=== PATIENT | female | born 1990 | race American Indian/Alaskan Native ===

== ENCOUNTER 2017-01-25 10:50 | Emergency (ER) | payer OTHER ==
[2017-01-25 11:05] VITALS: BP 112/73
[2017-01-25] MEDS ORDERED: MOTRIN PO ONE (13:11)
--- NOTE | 2017-01-25 14:33 | Emergency Department Report ---
- General Chief complaint: Skin/Abscess/Foreign Body Stated complaint: KNOTS UNDER BREAST/CHEST AREA Time Seen by Provider: 01/25/17 12:49 Source: patient Mode of arrival: Ambulatory Limitations: No Limitations - Related Data Home Medications Medication Instructions Recorded Confirmed Last Taken No Known Home Medications [No 06/18/16 06/18/16 Unknown Reported Home Medications] Allergies Allergy/AdvReac Type Severity Reaction Status Date / Time No Known Allergies Allergy Unverified 06/18/16 09:15 Abscess Boil HPI - HPI Chief Complaint: Skin/Abscess/Foreign Body Stated Complaint: KNOTS UNDER BREAST/CHEST AREA Time Seen by Provider: 01/25/17 12:49 Home Medications: Home Medications Medication Instructions Recorded Confirmed Last Taken No Known Home Medications [No 06/18/16 06/18/16 Unknown Reported Home Medications] Allergies/Adverse Reactions: Allergies Allergy/AdvReac Type Severity Reaction Status Date / Time No Known Allergies Allergy Unverified 06/18/16 09:15 ED Review of Systems ROS: Stated complaint: KNOTS UNDER BREAST/CHEST AREA Other details as noted in HPI ED Past Medical Hx - Past Medical History Previous Medical History?: No - Surgical History Past Surgical History?: No - Social History Smoking Status: Current Every Day Smoker Substance Use Type: Alcohol, Marijuana - Medications Home Medications: Home Medications Medication Instructions Recorded Confirmed Last Taken Type No Known Home Medications [No 06/18/16 06/18/16 Unknown History Reported Home Medications] ED Physical Exam - General Limitations: No Limitations ED Course Vital Signs 01/25/17 11:01 Temperature 98.4 F Pulse Rate 89 Respiratory 16 Rate Blood Pressure 112/73 O2 Sat by Pulse 98 Oximetry Critical care attestation.: If time is entered above; I have spent that time in minutes in the direct care of this critically ill patient, excluding procedure time. ED Disposition Condition: Stable Referrals: PRIMARY CARE, [Primary Care Provider] - 3-5 Days
--- NOTE | 2017-01-25 14:49 | Emergency Department Report ---
Entered by LUCI BURGESS, acting as scribe for ALEXANDER STANFORD PA. - General Chief complaint: Skin/Abscess/Foreign Body Stated complaint: KNOTS UNDER BREAST/CHEST AREA Time Seen by Provider: 01/25/17 12:49 Source: patient Mode of arrival: Ambulatory Limitations: No Limitations - History of Present Illness Initial comments: 26 year old female with no significant PMHx presents to the ED c/o lumps on left breast that began 6 months ago. Patient states the lumps constantly change in size. Associated symptoms include pain around the lumps, which she describes as pressure in quality, intermittent chest pain, and, discoloration on mid- chest that began 2 days ago. Rates pain a 9/10 in severity. Denies nausea, vomiting, fever, chills, numbness, and tingling. Use tobacco products. LMP 01/25. NKDA. HERNÁNDEZ complaint: discoloration (dark discoloration on upper mid-chest), other ( breast mass on left breast) Onset/Timin -: month(s) Tetanus Up to Date: unsure Location: chest (left breast) Severity: moderate Severity scale (0 -10): 9 Quality: other (pressure) Consistency: constant Improves with: none Worsens with: none Context: none Associated symptoms: denies other symptoms Treatments Prior to Arrival: none - Related Data Previous Rx's Medication Instructions Recorded Last Taken Type Cephalexin [Keflex] 500 mg PO Q12HR #14 cap 01/25/17 Unknown Rx Ibuprofen [Motrin] 600 mg PO Q8H PRN #30 tablet 01/25/17 Unknown Rx Sulfamethoxazole/Trimethoprim 1 each PO BID #14 tablet 01/25/17 Unknown Rx [Bactrim DS TAB] Allergies Allergy/AdvReac Type Severity Reaction Status Date / Time No Known Allergies Allergy Unverified 06/18/16 09:15 Abscess Boil HPI - HPI Chief Complaint: Skin/Abscess/Foreign Body Stated Complaint: KNOTS UNDER BREAST/CHEST AREA Time Seen by Provider: 01/25/17 12:49 Duration: >1 Week (6 months) Location: Chest (left breast) Severity: Moderate History: Yes Pain (left breast around mass), No Fever, No Purulent Drainage, No Numbness, No Foreign Body, No Previous History, No Insect Bite Home Medications: Previous Rx's Medication Instructions Recorded Last Taken Type Cephalexin [Keflex] 500 mg PO Q12HR #14 cap 01/25/17 Unknown Rx Ibuprofen [Motrin] 600 mg PO Q8H PRN #30 tablet 01/25/17 Unknown Rx Sulfamethoxazole/Trimethoprim 1 each PO BID #14 tablet 01/25/17 Unknown Rx [Bactrim DS TAB] Allergies/Adverse Reactions: Allergies Allergy/AdvReac Type Severity Reaction Status Date / Time No Known Allergies Allergy Unverified 06/18/16 09:15 ED Review of Systems Comment: All other systems reviewed and negative Constitutional: denies: chills, fever, other (tingling and discharge from breast mass) Cardiovascular: chest pain (intermittent) Gastrointestinal: denies: nausea, vomiting Skin: change in color (dark discoloration to mid-chest), other (breast mass on left breast) ED Past Medical Hx - Past Medical History Previous Medical History?: No - Surgical History Past Surgical History?: No - Social History Smoking Status: Current Every Day Smoker Substance Use Type: Alcohol, Marijuana - Medications Home Medications: Home Medications Medication Instructions Recorded Confirmed Last Taken Type Cephalexin [Keflex] 500 mg PO Q12HR #14 cap 01/25/17 Unknown Rx Ibuprofen [Motrin] 600 mg PO Q8H PRN #30 tablet 01/25/17 Unknown Rx Sulfamethoxazole/Trimethoprim 1 each PO BID #14 tablet 01/25/17 Unknown Rx [Bactrim DS TAB] ED Physical Exam - General Limitations: No Limitations General appearance: alert, in no apparent distress - Head Head exam: Present: atraumatic, normocephalic - Eye Eye exam: Present: normal appearance, EOMI Pupils: Present: normal accommodation - ENT ENT exam: Present: normal exam, mucous membranes moist - Neck Neck exam: Present: normal inspection, full ROM. Absent: tenderness, lymphadenopathy - Respiratory Respiratory exam: Present: normal lung sounds bilaterally, chest wall tenderness (mild discomfort left breast in her quadrant at 8 o'clock position small 1-2 cm mass slightly firm but mobile no masses and axilla or in tail of breast no significant external skin changes ). Absent: respiratory distress - Cardiovascular Cardiovascular Exam: Present: regular rate, normal rhythm - GI/Abdominal GI/Abdominal exam: Present: soft. Absent: distended - Extremities Exam Extremities exam: Present: normal inspection, full ROM - Back Exam Back exam: Present: normal inspection, full ROM - Neurological Exam Neurological exam: Present: alert, oriented X3 - Psychiatric Psychiatric exam: Present: normal affect, normal mood - Skin Skin exam: Present: warm, dry, intact. Absent: rash - Other Other exam information: Chest: no axillary lymphadenopathy. Present: a well-circumcised round stiff lesion in lower inner quadrant 3 at approximately 8 o'clock in location. ED Course Vital Signs 01/25/17 11:01 Temperature 98.4 F Pulse Rate 89 Respiratory 16 Rate Blood Pressure 112/73 O2 Sat by Pulse 98 Oximetry ED Medical Decision Making - Medical Decision Making A/P: Possible cystic breast mass versus small abscess 1-breast ultrasound done but as per radiology service will not be read for several hours I will call patient back with the result and refer her to outpatient surgery/breast clinic/CRITICAL CARE PHYSICIAN. She states she has been experiencing this intermittently for 6 months so it is more likely to be a cystic mass 2-we'll cover empirically for small abscess with Bactrim, Motrin when necessary 3-advised patient to return to the ED if she experiences worsening pain or any skin changes on breast or any significant erythema ED Disposition Clinical Impression: Breast cyst Qualifiers: Laterality: left Qualified Code(s): N60.02 - Solitary cyst of left breast Disposition: DISCHARGED TO HOME OR SELFCARE Is pt being admited?: No Does the pt Need Aspirin: No Condition: Stable Instructions: Breast Self-exam (ED), Breast Mass (ED) Prescriptions: Cephalexin [Keflex] 500 mg PO Q12HR #14 cap Ibuprofen [Motrin] 600 mg PO Q8H PRN #30 tablet PRN Reason: Pain Sulfamethoxazole/Trimethoprim [Bactrim DS TAB] 1 each PO BID #14 tablet Referrals: NYLA MARIE MD [Staff Physician] - 3-5 Days MELISSA LINARES MD [Staff Physician] - 3-5 Days Time of Disposition: 14:41 This documentation as recorded by the JENIFER toledo JASMINE,accurately reflects the service I personally performed and the decisions made by ,ALEXANDER STANFORD PA.
--- NOTE | 2017-01-25 17:15 | Ultrasound Report ---
FINAL REPORT EXAM: US BREAST LT LIMITED HISTORY: left breast mass/abscess TECHNIQUE: Limited ultrasound of the left breast using grayscale and color flow imaging PRIORS: None FINDINGS: Examination over the palpable area of clinical concern was performed in the medial left breast 8:00 position, 8 cm from the nipple. In this location, there is a 2.2 x 0.6 x 2.8 cm complex cystic collection with internal debris. This is located in the subcutaneous tissues and has no internal blood flow identified. It is located 2 mm deep to the skin. Findings are nonspecific and can be consistent with seroma, hematoma, or abscess. IMPRESSION: Complex cystic fluid collection in the subcutaneous tissues at the 8 o'clock position, 8 cm from the nipple corresponding to the palpable area of concern. Ultrasound findings are nonspecific but can be consistent with abscess as clinically suspected.
== END 2017-01-25 15:02 | disposition home or self-care (01) ==
LOC: ED 10:50
DX: N60.02 Solitary cyst of left breast (principal); F17.200 Nicotine dependence, unspecified, uncomplicated; F12.90 Cannabis use, unspecified, uncomplicated

== ENCOUNTER 2017-04-05 01:15 | Emergency (ER) | payer SELFPAY ==
[2017-04-05 01:40] VITALS: BP 113/86
== END 2017-04-05 05:30 | disposition left against medical advice (07) ==
LOC: ED 01:15
DX: K08.89 Other specified disorders of teeth and supporting structures (principal); Z53.21 Procedure and treatment not carried out due to patient leaving prior to being seen by health care provider

== ENCOUNTER 2020-08-31 17:06 | Emergency (ER) | payer BC ==
[2020-08-31 17:28] VITALS: BP 119/86
--- NOTE | 2020-08-31 20:08 | Cat Scan Report ---
NONENHANCED CT SCAN OF THE HEAD: INDICATION / CLINICAL INFORMATION: 30 years Female; headache, dizziness after head injury. TECHNIQUE: Routine CT head without contrast. All CT scans at this location are performed using CT dos e reduction for ALARA by means of automated exposure control. COMPARISON: None. FINDINGS: BRAIN / INTRACRANIAL CONTENTS: No intracranial sequela from the trauma; no scalp swelling; no fluid l evel in the visualized portions of the paranasal sinuses. No acute hemorrhage, mass effect, midline shift, hydrocephalus, or acute, large territorial infarct. No chronic infarct or focal atrophy. Normal brain volume and ventricular/sulcal size for age. No sign ificant white matter abnormality. CRANIOCERVICAL JUNCTION: Mild tonsillar ectopia ORBITS: No significant abnormality of visualized orbits. SINUSES / MASTOIDS: No significant abnormality of the visualized paranasal sinuses or mastoid air kinza ls. ADDITIONAL FINDINGS: None. IMPRESSION: No acute focal parenchymal lesion in the brain Signer Name: Naif Montelongo MD Signed: 08/31/2020 8:04 PM Workstation Name: [id number]
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
[2020-08-31 20:51] LABS: Basophils # (Auto) 0.1 K/mm3 (0.0-0.1); Eosinophils # (Auto) 0.1 K/mm3 (0.0-0.4); Eosinophils % (Auto) 1.4 % (0.0-4.3); Hematocrit 39.4 % (30.3-42.9); Hemoglobin 13.5 gm/dl (10.1-14.3); Lymphocytes # (Auto) 2.2 K/mm3 (1.2-5.4); Lymphocytes % (Auto) 30.7 % (13.4-35.0); Mean Corpuscular HGB Conc 34 % (30-34); Mean Corpuscular Volume 91 fl (79-97); Monocytes # (Auto) 0.3 K/mm3 (0.0-0.8); Monocytes % (Auto) 3.6 % (0.0-7.3); Platelet Count 334 K/mm3 (140-440); Red Blood Count 4.35 M/mm3 (3.65-5.03); Red Cell Distribution Width 13.3 % (13.2-15.2)
[2020-08-31 21:12] LABS: Alanine Aminotransferase 19 units/L (7-56); Albumin 4.1 g/dL (3.9-5); Blood Urea Nitrogen 6 mg/dL (7-17); Calcium 9.1 mg/dL (8.4-10.2); Hemolysis Index 10
[2020-08-31 21:13] LABS: BUN/Creatinine Ratio 10
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
== END 2020-08-31 23:10 | disposition home or self-care (01) ==
LOC: ED 17:06
DX: S09.90XA Unspecified injury of head, initial encounter (principal); I10 Essential (primary) hypertension; E11.9 Type 2 diabetes mellitus without complications; F17.200 Nicotine dependence, unspecified, uncomplicated; Z79.1 Long term (current) use of non-steroidal anti-inflammatories (NSAID); Z79.899 Other long term (current) drug therapy; W20.8XXA Other cause of strike by thrown, projected or falling object, initial encounter; Y93.89 Activity, other specified; Y92.89 Other specified places as the place of occurrence of the external cause; Y99.8 Other external cause status
CPT/HCPCS: 36415; 70450; 80053; 84484; 84703; 85025; 93005

== ENCOUNTER 2021-04-21 18:39 | Emergency (ER) | payer BC ==
[2021-04-21 19:07] VITALS: BP 103/64
[2021-04-21] MEDS ORDERED: IBUPROFEN 600 MG TAB PO ONE (20:24)
[2021-04-21] MEDS ORDERED: ACETAMINOPHEN 500 MG TAB PO ONE (20:24)
--- NOTE | 2021-04-21 20:53 | Emergency Department Report ---
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 Patient states that her job entails heavy lifting and that in the last 24 hours she has not been able to hyperextend her right arm because of worsening right shoulder pain. Patient states that she has not been able to sleep at night because of worsening pain. Patient denies dizziness, cough, fever, chills, fall, traumatic injury, chest pain, shortness of breath, back pain, change in vision, right arm weakness, headache, neck pain or back pain. MD Complaint: extremity pain (Right shoulder pain), joint paint (Right shoulder pain) -: Sudden, week(s) (1) Location: right, upper extremity (Right shoulder pain) History of Same: Yes -: Yes arthralgia (Right shoulder pain), No fever, No associated dyspnea, No associated chest pain Radiation: proximal, distal Severity scale (0 -10): 8 Quality: aching, sharp Consistency: constant Improves with: nothing Worsens with: weight bearing, walking, exertion, palpation Associated Symptoms: denies other symptoms, arthralgias (Right shoulder). denies: chest pain, shortness of breath, fever, myalgias, rash - Related Data Previous Rx's Medication Instructions Recorded Last Taken Type Ibuprofen [Motrin] 600 mg PO Q8H PRN #30 tablet 01/25/17 Unknown Rx Sulfamethoxazole/Trimethoprim 1 each PO BID #14 tablet 01/25/17 Unknown Rx [Bactrim DS TAB] cephALEXin [Keflex] 500 mg PO Q12HR #14 cap 01/25/17 Unknown Rx Ketorolac [Toradol] 10 mg PO Q6H PRN #12 tablet 08/31/20 Unknown Rx Meclizine [Antivert] 25 mg PO TID PRN #10 tablet 08/31/20 Unknown Rx Baclofen 20 mg PO Q12H PRN #30 tablet 04/21/21 Unknown Rx Ibuprofen [Motrin] 800 mg PO Q8HR PRN #30 tablet 04/21/21 Unknown Rx metFORMIN [Glucophage] 500 mg PO Q12H #60 tablet 04/21/21 Unknown Rx traMADoL [Ultram] 50 mg PO Q6HR PRN #12 tablet 04/21/21 Unknown Rx Allergies Allergy/AdvReac Type Severity Reaction Status Date / Time No Known Allergies Allergy Verified 04/05/17 01:34 ED Review of Systems ROS: Stated complaint: PAIN IN (R) SHOULDER AND (R) SIDE OF NECK Other details as noted in HPI Constitutional: denies: chills, fever Eyes: denies: eye pain, eye discharge, vision change ENT: denies: ear pain, throat pain Respiratory: denies: cough, shortness of breath, wheezing Cardiovascular: denies: chest pain, palpitations Endocrine: no symptoms reported Gastrointestinal: denies: abdominal pain, nausea, diarrhea Genitourinary: denies: urgency, dysuria, discharge Musculoskeletal: arthralgia (Right shoulder pain that radiates to the right lateral cervical area), myalgia. denies: back pain, joint swelling Skin: denies: rash, lesions Neurological: denies: headache, weakness, paresthesias Psychiatric: denies: anxiety, depression Hematological/Lymphatic: denies: easy bleeding, easy bruising ED Past Medical Hx - Past Medical History Previous Medical History?: Yes Hx Hypertension: Yes Hx Diabetes: Yes - Social History Smoking Status: Current Every Day Smoker Substance Use Type: None - Medications Home Medications: Home Medications Medication Instructions Recorded Confirmed Last Taken Type Ibuprofen [Motrin] 600 mg PO Q8H PRN #30 tablet 01/25/17 Unknown Rx Sulfamethoxazole/Trimethoprim 1 each PO BID #14 tablet 01/25/17 Unknown Rx [Bactrim DS TAB] cephALEXin [Keflex] 500 mg PO Q12HR #14 cap 01/25/17 Unknown Rx Ketorolac [Toradol] 10 mg PO Q6H PRN #12 tablet 08/31/20 Unknown Rx Meclizine [Antivert] 25 mg PO TID PRN #10 tablet 08/31/20 Unknown Rx Baclofen 20 mg PO Q12H PRN #30 tablet 04/21/21 Unknown Rx Ibuprofen [Motrin] 800 mg PO Q8HR PRN #30 tablet 04/21/21 Unknown Rx metFORMIN [Glucophage] 500 mg PO Q12H #60 tablet 04/21/21 Unknown Rx traMADoL [Ultram] 50 mg PO Q6HR PRN #12 tablet 04/21/21 Unknown Rx ED Physical Exam - General Limitations: No Limitations General appearance: alert, in no apparent distress - Head Head exam: Present: atraumatic, normocephalic, normal inspection - Eye Eye exam: Present: normal appearance, PERRL, EOMI Pupils: Present: normal accommodation - ENT ENT exam: Present: normal exam, normal orophraynx, mucous membranes moist, TM's normal bilaterally, normal external ear exam - Neck Neck exam: Present: normal inspection, tenderness (Palpable right lateral sternocleidomastoid and trapezoid muscle tenderness), full ROM. Absent: meningismus, lymphadenopathy, thyromegaly - Respiratory Respiratory exam: Present: normal lung sounds bilaterally. Absent: respiratory distress, wheezes, rales, rhonchi, chest wall tenderness, prolonged expiratory - Cardiovascular Cardiovascular Exam: Present: regular rate, normal rhythm, normal heart sounds. Absent: systolic murmur, diastolic murmur, rubs, gallop - GI/Abdominal GI/Abdominal exam: Present: soft, normal bowel sounds. Absent: tenderness, guarding, rebound, hyperactive bowel sounds, hypoactive bowel sounds, organomegaly - Extremities Exam Extremities exam: Present: normal inspection, tenderness (Palpable severe reproducible right shoulder tenderness with limited range of motion due to pain), normal capillary refill. Absent: full ROM (Limited range of motion of right shoulder due to severe pain), pedal edema, joint swelling, calf tenderness - Back Exam Back exam: Present: normal inspection, full ROM. Absent: tenderness, CVA tenderness (R), CVA tenderness (L), muscle spasm, paraspinal tenderness, vertebral tenderness, rash noted - Neurological Exam Neurological exam: Present: alert, oriented X3, CN II-XII intact, normal gait, reflexes normal - Psychiatric Psychiatric exam: Present: normal affect, normal mood - Skin Skin exam: Present: warm, dry, intact, normal color. 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 Patient states that her job entails heavy lifting and that in the last 24 hours she has not been able to hyperextend her right arm because of worsening right shoulder pain. Patient states that she has not been able to sleep at night because of worsening pain. In the ED, patient is alert and oriented x3 and is not in any distress. Patient was treated for pain in the ED and based on the history and physical exam findings, patient symptoms are likely due to tendinitis or muscle strain or bursitis of right shoulder. Patient was therefore discharged home on pain medications and advised to follow-up with her primary care physician in 5 to 7 days for reevaluation or return to the ED immediately if symptoms get worse. - Differential Diagnosis Bursitis; tendinitis; muscle strain; cervical radiculopathy; muscle spasm Critical care attestation.: If time is entered above; I have spent that time in minutes in the direct care of this critically ill patient, excluding procedure time. ED Disposition Clinical Impression: Acute bursitis of right shoulder, Right shoulder tendonitis, Right cervical radiculopathy Muscle strain of right shoulder region Qualifiers: Encounter type: initial encounter Qualified Code(s): S46.911A - Strain of unspecified muscle, fascia and tendon at shoulder and upper arm level, right arm, initial encounter Disposition: DC- TO HOME OR SELFCARE Is pt being admited?: No Does the pt Need Aspirin: No Condition: Stable Instructions: Muscle Strain, [id number], Cervical Radiculopathy, [id number]-[id number], Bursitis, Wajs-[id number] Additional Instructions: Your symptoms are likely due to muscle strain versus right shoulder bursitis or tendinitis. Take medications with food, drink plenty of fluids and follow-up with your primary care physician in 5 to 7 days for reevaluation. Return to the ED immediately if symptoms get worse. Prescriptions: Baclofen 20 mg PO Q12H PRN #30 tablet PRN Reason: Muscle Spasm metFORMIN [Glucophage] 500 mg PO Q12H #60 tablet Ibuprofen [Motrin] 800 mg PO Q8HR PRN #30 tablet PRN Reason: Pain , Severe (7-10) traMADoL [Ultram] 50 mg PO Q6HR PRN #12 tablet PRN Reason: Pain Referrals: GONSALO BAER MD [Primary Care Provider] - 7-10 days Forms: Work/School Release Form(ED) Time of Disposition: 20:55 Print Language: AZERI
== END 2021-04-21 21:16 | disposition home or self-care (01) ==
LOC: ED 18:39
DX: S46.911A Strain of unspecified muscle, fascia and tendon at shoulder and upper arm level, right arm, initial encounter (principal); M54.12 Radiculopathy, cervical region; M77.8 Other enthesopathies, not elsewhere classified; M75.51 Bursitis of right shoulder; I10 Essential (primary) hypertension; E11.9 Type 2 diabetes mellitus without complications; F17.200 Nicotine dependence, unspecified, uncomplicated; Z79.899 Other long term (current) drug therapy; X50.0XXA Overexertion from strenuous movement or load, initial encounter; Y93.89 Activity, other specified; Y92.89 Other specified places as the place of occurrence of the external cause; Y99.8 Other external cause status
CPT/HCPCS: 99282